=== PATIENT | female | born 1985 | race Two or more races ===

== ENCOUNTER 2021-06-14 03:38 | Inpatient (IN) | payer SELFPAY ==
[~2021-06-14] VITALS: Ht 154.9 cm; Wt 83.0 kg
[2021-06-14] MEDS ORDERED: IV RINGERS,LACTATED 1000ML 1,000 ML IV SCH ×2 (03:45→04:45)
[2021-06-14 04:29] LABS: BILIRUBIN,URINE NEGATIVE (NEG); CLARITY,URINE CLEAR; COLOR,URINE YELLOW; NITRITE,URINE NEGATIVE (NEG); PROTEIN,URINE 30 mg/dL (NEG-TRACE)
[2021-06-14 04:36] LABS: BARBITURATES NEG (NEG); BENZODIAZEPINES NEG (NEG); CANNABINOIDS NEG (NEG); COCAINE NEG (NEG); METHADONE NEG (NEG); OPIATES NEG (NEG); PHENCYCLIDINE NEG (NEG)
[2021-06-14 04:37] LABS: AMPHETAMINE/METHAMPHETAMINE NEG (NEG)
[2021-06-14 04:44] LABS: BACTERIA,URINE FEW /HPF (0-FEW); RBC,URINE 0 /HPF (0-2)
[2021-06-14] MEDS ORDERED: 0.9 % SODIUM CHLORIDE 10 ML DISP.SYRIN. IV PRN ×2 (04:45→14:45)
[2021-06-14] MEDS ORDERED: OXYTOCIN 30 UNIT/500 ML PREMIX 500 ML IV PRN ×3 (04:45→14:45)
[2021-06-14] MEDS ORDERED: ACETAMINOPHEN 325 MG TABLET. PO PRN ×2 (04:45→14:45)
[2021-06-14] MEDS ORDERED: LIDOCAINE 1% PF 30 ML VIAL. INJ PRN (04:45)
[2021-06-14] MEDS ORDERED: TERBUTALINE 1 MG/ML VIAL. SQ PRN (04:45)
[2021-06-14] MEDS ORDERED: BUTORPHANOL 2 MG/ML VIAL. IVP PRN ×2 (04:45)
[2021-06-14 05:27] LABS: BASO % 0 % (0-3); EOS # 0.1 x10^3/uL (0.0-0.7); EOS % 1 % (0-3); HEMATOCRIT 38.3 % (36.0-47.0); HEMOGLOBIN 12.6 g/dL (12.0-15.5); LYMPH # 2.1 x10^3/uL (1.0-4.8); LYMPH % 27 % (24-48); MEAN CORPUSCULAR HEMOGLOBIN 30 pg (25-35); MEAN CORPUSCULAR HGB CONC 33 g/dL (31-37); MEAN CORPUSCULAR VOLUME 90 fL (79-100); MONO # 0.5 x10^3/uL (0.0-1.1); MONO % 6 % (0-9); NEUT # 5.2 x10^3/uL (1.8-7.7); NEUT % 65 % (31-73); PLATELET COUNT 165 x10^3/uL (140-400); RED BLOOD COUNT 4.25 x10^6/uL (3.50-5.40); RED CELL DISTRIBUTION WIDTH 15.6 % (11.5-14.5); WHITE BLOOD COUNT 7.9 x10^3/uL (4.0-11.0)
[2021-06-14] MEDS ORDERED: FLU VACC QUAD 21-22 (6MOS+) PF 0.5 ML SYRINGE. VAX IM ONE (11:00)
--- NOTE | 2021-06-14 11:48 | PDOC1 ---
ELIGIBILITY SPECIALIST H&P Date of Admission: Date of Admission: Jun 14, 2021 at 03:38 History of Present Illness: EDC: 06/20/21 LMP: unk 35y @ 39.1 by 17wk u/s presents to L&D with LOF. The pt was found to be grossly ruptured. She was dilated to 1 cm. The pt was started on Pit for augmentation. The pt has had a relatively uncomplicated . She was placed on ASA for her AMA status. PMH: Denies PSH: Gallbladder [facility] 07/03/2012 Meds: PNV, ASA All: NKDA OBHx: TSVD x 5 SH: no to9b, no EtOH FH: Noncontributory Medications: Meds: Current Medications Medications (Trade) Dose Ordered Sig/Elmo Route PRN Reason Start Time Stop Time Status Last Admin Dose Admin Ringer's Solution 1,000 ml @ 125 mls/hr Q8H IV 06/14/21 03:45 06/14/21 10:03 Ringer's Solution 1,000 ml @ 125 mls/hr Q8H IV 06/14/21 04:45 06/14/21 05:02 Oxytocin 500 ml @ 0 mls/hr CONT PRN IV SEE I/O RECORD 06/14/21 04:45 06/14/21 05:05 Allergies: Coded Allergies: No Known Allergies (Verified Allergy, Unknown, 06/14/21) Physical Exam: PE: GENERAL: No apparent distress. Alert and oriented. HEENT: Head normocephalic, atraumatic. NECK: Supple LUNGS: Clear to auscultation. HEART: RRR, S1, S2 present, pulses intact ABDOMEN: Soft, positive bowel sounds. EXTREMITIES: No cyanosis or edema. NEUROLOGIC: Normal speech, normal tone PSYCHIATRIC: Normal affect, normal mood. SKIN: No ulceration. FHT: 120s +acels/no decels/mLTV [place]: 3 min SVE: 4/70/-2 Labs: Laboratory Tests Test 06/14/21 03:55 06/14/21 04:50 06/14/21 06:01 06/14/21 08:40 Urine Collection Type Unknown Urine Color Yellow Urine Clarity Clear Urine pH 6.0 (<5.0-8.0) Urine Specific [place] 1.015 (1.000-1.030) Urine Protein 30 mg/dL (NEG-TRACE) Urine Glucose (UA) Negative mg/dL (NEG) Urine Ketones (Stick) Negative mg/dL (NEG) Urine Blood Negative (NEG) Urine Nitrite Negative (NEG) Urine Bilirubin Negative (NEG) Urine Urobilinogen Dipstick 1.0 mg/dL (0.2 mg/dL) Urine Leukocyte Esterase Negative (NEG) Urine RBC 0 /HPF (0-2) Urine WBC 1-4 /HPF (0-4) Urine Squamous Epithelial Cells Mod /LPF Urine Bacteria Few /HPF (0-FEW) Urine Mucus Mod /LPF Urine Opiates Screen Neg (NEG) Urine Methadone Screen Neg (NEG) Urine Barbiturates Neg (NEG) Urine Phencyclidine Screen Neg (NEG) Urine Amphetamine/Methamphetamine Neg (NEG) Urine Benzodiazepines Screen Neg (NEG) Urine Cocaine Screen Neg (NEG) Urine Cannabinoids Screen Neg (NEG) Urine Ethyl Alcohol Neg (NEG) White Blood Count 7.9 x10^3/uL (4.0-11.0) Red Blood Count 4.25 x10^6/uL (3.50-5.40) Hemoglobin 12.6 g/dL (12.0-15.5) Hematocrit 38.3 % (36.0-47.0) Mean Corpuscular Volume 90 fL (79-100) Mean Corpuscular Hemoglobin 30 pg (25-35) Mean Corpuscular Hemoglobin Concent 33 g/dL (31-37) Red Cell Distribution Width 15.6 % (11.5-14.5) H Platelet Count 165 x10^3/uL (140-400) Neutrophils (%) (Auto) 65 % (31-73) Lymphocytes (%) (Auto) 27 % (24-48) Monocytes (%) (Auto) 6 % (0-9) Eosinophils (%) (Auto) 1 % (0-3) Basophils (%) (Auto) 0 % (0-3) Neutrophils # (Auto) 5.2 x10^3/uL (1.8-7.7) Lymphocytes # (Auto) 2.1 x10^3/uL (1.0-4.8) Monocytes # (Auto) 0.5 x10^3/uL (0.0-1.1) Eosinophils # (Auto) 0.1 x10^3/uL (0.0-0.7) Basophils # (Auto) 0.0 x10^3/uL (0.0-0.2) SARS-CoV-2 Antigen (Rapid) Negative (NEGATIVE) Treponema pallidum Antibody Nonreactive (Nonreactive) Laboratory Tests 06/14/21 04:50 Laboratory Tests 06/14/21 04:50 Assessment & Plan: A/P 35y @ 39.1 by 17wk u/s 1.) SROM on Pit for augmentation 2.) AMA - on ASA 3.) DPS - LUCAS consent signed 03/30/21 4.) TDAP given 03/30/21 5.) Gap in care 01/19/21 to 03/30/21 6.) Fetus cat I FHT 7.) GBS neg HEATHER CABRERA MD Jun 14, 2021 11:48
[2021-06-14] MEDS ORDERED: ZOLPIDEM 5 MG TABLET. PO PRN (14:45)
[2021-06-14] MEDS ORDERED: PHENYLEPH/MINERAL OIL/PETROLAT RECTAL OINTMENT TUBE. RC PRN (14:45)
[2021-06-14] MEDS ORDERED: MAGNESIUM HYDROXIDE 2,400 MG/30 ML ORAL.SUSP. PO PRN (14:45)
[2021-06-14] MEDS ORDERED: BENZOCAINE 20% TOPICAL AEROSOL SPRAY 57GM CAN. TP PRN (14:45)
[2021-06-14] MEDS ORDERED: TDaP (Adacel) per PROTOCOL. MC PRN (14:45)
[2021-06-14] MEDS ORDERED: HYDROCORTISONE 1% TOPICAL OINTMENT 30GM TUBE. TP PRN (14:45)
[2021-06-14] MEDS ORDERED: oxyCODONE/APAP 5/325 1 TAB TABLET PO PRN (14:45)
[2021-06-14] MEDS ORDERED: MAG HYDROX/ALUMINUM HYD/SIMETH 30 ML ORAL.SUSP PO PRN (14:45)
[2021-06-14] MEDS ORDERED: diphenhydrAMINE HCL 25 MG CAPSULE PO PRN (14:45)
[2021-06-14] MEDS ORDERED: MMR per PROTOCOL. MC PRN (14:45)
[2021-06-14] MEDS ORDERED: SIMETHICONE 80 MG TAB.CHEW PO PRN (14:45)
--- NOTE | 2021-06-14 15:55 | PDOC4 ---
VAGINAL DELIVERY DATE DATE: 06/14/21 TIME: 15:54 TIME Patient delivered a viable female over intact perineum at 1350. Wt 6 lb 9.8 oz. Apgars 9/9. Placenta delivered spontaneously, intact with 3VC. No lacerations noted. Good hemostasis noted. 20 U of Pit given with IVF. EBL 200 cc. WEIGHT Weight [ ] HEATHER CABRERA MD Jun 14, 2021 15:55
[2021-06-14] MEDS: IBUPROFEN 400 MG TABLET. PO PRN (16:40)
[2021-06-14 18:00] VITALS: BP 113/67
[2021-06-14 22:12] VITALS: BP 83/43
[2021-06-15] MEDS: IBUPROFEN 400 MG TABLET. PO PRN ×3 (01:25→17:53)
[2021-06-15 01:26] VITALS: BP 88/53
[2021-06-15 05:30] VITALS: BP 88/49
[2021-06-15 06:53] LABS: HEMATOCRIT 33.8 % (36.0-47.0); HEMOGLOBIN 11.3 g/dL (12.0-15.5); RED BLOOD COUNT 3.79 x10^6/uL (3.50-5.40); RED CELL DISTRIBUTION WIDTH 15.6 % (11.5-14.5); WHITE BLOOD COUNT 8.5 x10^3/uL (4.0-11.0)
[2021-06-15 08:00] VITALS: BP 114/63
[2021-06-15] MEDS ORDERED: FERROUS SULFATE 325 MG TABLET. PO SCH (08:00)
[2021-06-15] MEDS: PRENATAL MULTIVITAMIN TABLET. PO SCH (08:41)
[2021-06-15] MEDS: DOCUSATE SODIUM 100 MG CAPSULE. PO PRN ×2 (08:41→17:52)
--- NOTE | 2021-06-15 09:19 | PDOC ---
MANAGER INTEGRATION PROGRESS NOTE Date of Service: DATE: 06/15/21 TIME: 09:15 Subjective: Visit completed with assistance of interpretive services. Doing well. Tolerates activity without difficulty. Pain well managed with Motrin. Breast/bottle feeding. Voiding without complaints. Tolerates regular diet. Otherwise denies complaints. Objective: Objective: FF U-1. Scant lochia. Breasts filling. Vital Signs: Vital Signs Date Time Temp Pulse Resp B/P (MAP) Pulse Ox O2 Delivery O2 Flow Rate FiO2 06/14/21 16:14 Room Air 06/14/21 18:00 98.7 75 16 113/67 (82) 98.7 Vital Signs Date Time Temp Pulse Resp B/P (MAP) Pulse Ox O2 Delivery O2 Flow Rate FiO2 06/15/21 08:00 98.3 61 16 114/63 (80) Room Air 98.3 Labs: Laboratory Tests Test 06/15/21 06:20 White Blood Count 8.5 x10^3/uL (4.0-11.0) Red Blood Count 3.79 x10^6/uL (3.50-5.40) Hemoglobin 11.3 g/dL (12.0-15.5) L Hematocrit 33.8 % (36.0-47.0) L Mean Corpuscular Volume 89 fL (79-100) Mean Corpuscular Hemoglobin 30 pg (25-35) Mean Corpuscular Hemoglobin Concent 33 g/dL (31-37) Red Cell Distribution Width 15.6 % (11.5-14.5) H Platelet Count 151 x10^3/uL (140-400) Laboratory Tests 06/15/21 06:20 Laboratory Tests 06/15/21 06:20 Physical Exam: GENERAL: No apparent distress. Alert and oriented. HEENT: Head normocephalic, atraumatic. NECK: Supple LUNGS: Clear to auscultation. HEART: RRR, S1, S2 present, pulses intact ABDOMEN: Soft, positive bowel sounds. EXTREMITIES: No cyanosis or edema. NEUROLOGIC: Normal speech, normal tone PSYCHIATRIC: Normal affect, normal mood. SKIN: No ulceration. FUNDUS: Firm, 1 below U BREASTS: Filling Assessment & Plan: 1.) 35yo 2.) PPD # 1 3.) AMA - on ASA 5.) DPS - LUCAS consent signed 03/30/21 4.) TDAP given 03/30/21 Progressing appropriately. Anticipate d/c home tomorrow. Pt. v/u of all. THADDEUS TAYLOR CNM Jun 15, 2021 09:19
[2021-06-15 12:14] VITALS: BP 113/69
[2021-06-15 17:58] VITALS: BP 100/59
[2021-06-15 21:30] VITALS: BP 117/63
[2021-06-16 06:10] VITALS: BP 111/60
[2021-06-16 08:00] VITALS: BP 107/53
[2021-06-16] MEDS: PRENATAL MULTIVITAMIN TABLET. PO SCH (08:00)
[2021-06-16] MEDS: DOCUSATE SODIUM 100 MG CAPSULE. PO PRN (08:01)
[2021-06-16] MEDS: IBUPROFEN 400 MG TABLET. PO PRN (08:01)
--- NOTE | 2021-06-16 09:31 | PDOC ---
PERSONAL TRAINER PROGRESS NOTE Date of Service: DATE: 06/16/21 TIME: 09:30 Subjective: Pt with good pain control. [place] PO. Voiding. Minimal lochia. Objective: Vital Signs: Vital Signs Date Time Temp Pulse Resp B/P (MAP) Pulse Ox O2 Delivery O2 Flow Rate FiO2 06/15/21 08:00 98.3 61 16 114/63 (80) Room Air 98.3 06/15/21 17:58 97 Vital Signs Date Time Temp Pulse Resp B/P (MAP) Pulse Ox O2 Delivery O2 Flow Rate FiO2 06/16/21 08:00 98.6 61 16 107/53 (71) 95 Room Air 98.6 Physical Exam: GENERAL: No apparent distress. Alert and oriented. HEENT: Head normocephalic, atraumatic. NECK: Supple LUNGS: Clear to auscultation. HEART: RRR, S1, S2 present, pulses intact ABDOMEN: Soft, positive bowel sounds. EXTREMITIES: No cyanosis or edema. NEUROLOGIC: Normal speech, normal tone PSYCHIATRIC: Normal affect, normal mood. SKIN: No ulceration. FFNT below umb No C/C/E Assessment & Plan: A/P 35y PPD #2 s/p 1.) PP doing well 2.) Hgb 12.6 -> 11.3 3.) TDAP given 03/30/21 4.) Contraception - since no longer wants BTL, she is considering OCPs 5.) D/c home HEATHER CABRERA MD Jun 16, 2021 09:31
[2021-06-16] MEDS ORDERED: DOCU-109 PO (09:44)
[2021-06-16] MEDS ORDERED: IBUP-1060 PO (09:44)
[2021-06-16 12:12] VITALS: BP 111/83
--- NOTE | 2021-06-16 13:15 | NUR ---
Dismiss amb with baby car seat thru er to friend in car. Home care instructions given and rx for motrin and colace given to pt. Stable
--- NOTE | 2021-06-16 20:09 | DS ---
DATE OF DISCHARGE: 06/16/2021 ADMISSION DIAGNOSES: 1. Intrauterine at 39 weeks and 1 day by a 17-week ultrasound. 2. Spontaneous rupture of membranes. 3. Advanced maternal age. 4. Desires permanent sterilization. 5. Status post Tdap. 6. Gap in care between 01/19 to 03/30. 7. Group B Streptococcus negative. DISCHARGE DIAGNOSES: 1. Intrauterine at 39 weeks and 1 day by a 17-week ultrasound. 2. Spontaneous rupture of membranes. 3. Advanced maternal age. 4. Desires permanent sterilization. 5. Status post Tdap. 6. Gap in care between 01/19 to 03/30. 7. Group B Streptococcus negative. PROCEDURE: Spontaneous vaginal delivery. BRIEF HOSPITAL COURSE: The patient is a 35-year-old 6, para 5-0-0-5, who presented to Labor and Delivery at 39 weeks and 1 day by 17-week ultrasound with leakage of fluid. The patient was found to be grossly ruptured. At that time, the patient was dilated to 1 cm. The patient was subsequently started on Pitocin for augmentation. The patient ultimately progressed and reached complete where she delivered vaginally. See delivery note for full detail. After delivery, the patient was asked again if she desired permanent sterilization and the patient had said that she no longer wanted a tubal ligation. On day #2, the patient said that she was considering starting oral contraceptive pills. Also by day #2, the patient was meeting all discharge criteria and subsequently discharged home. Of note, her hemoglobin on admission was 12.6 and after discharge was found to be 11.3. DISCHARGE INSTRUCTIONS: The patient was told not to lift anything greater than 20 pounds, have pelvic rest for 6 weeks. CALL IF: The patient was to call if she had fevers, chills, nausea, vomiting, abdominal pain or any additional questions or concerns. FOLLOWUP APPOINTMENT: The patient was to follow up on 07/27 at 10:00 a.m. for a visit. DISCHARGE MEDICATIONS: The patient was given a prescription for Motrin 800 mg, 30 pills and Colace 100 mg, [address]: Francheska TID: [id number]
== END 2021-06-16 13:15 | disposition home or self-care (01) | DRG 807 ==
LOC: 3 SO LND 03:38 → OBSVTOIN 03:38 → 3 SO LND 18:56
PROVIDERS: ADMIT Obstetrics & Gynecology; ATTEND Obstetrics & Gynecology
PROC: 10E0XZZ Delivery of Products of Conception, External Approach (ICD-10-PCS; principal; 2021-06-14)
DX: O80 Encounter for full-term uncomplicated delivery (principal); Z37.0 Single live birth; Z3A.39 39 weeks gestation of pregnancy; Z20.822 Contact with and (suspected) exposure to COVID-19
CPT/HCPCS: 36415; 80307; 81001; 85025; 85027; 86592; 86850; 86900; 86901; 87426; 88307; 90471; 90686; G0378; J2590; J7120; U0003; U0005